=== PATIENT | female | born 1990 | race Caucasian/White ===

== ENCOUNTER 2017-02-08 10:43 | Emergency (ER) | payer OTHER ==
[~2017-02-08] VITALS: Ht 172.7 cm; Wt 68.0 kg
[2017-02-08] MEDS ORDERED: CHLORDIAZEPOXIDE HCL 25 MG CAPSULE ONE (10:55)
[2017-02-08] MEDS ORDERED: ONDANSETRON 4 MG TAB.RAPDIS ONE (10:56)
[2017-02-08] MEDS ORDERED: CHLORDIAZEPOXIDE HCL 25 MG CAPSULE PO ONE (11:00)
[2017-02-08] MEDS ORDERED: hydrOXYzine 10 MG TABLET PO ONE (11:00)
[2017-02-08] MEDS ORDERED: ONDANSETRON 4 MG TAB.RAPDIS SL ONE (11:00)
[2017-02-08 11:50] VITALS: BP 122/68
== END 2017-02-08 12:01 ==
LOC: ER 10:46
DX: F11.10 Opioid abuse, uncomplicated (principal)
CPT/HCPCS: A4606; Q0162; Q0177; Z7610

== ENCOUNTER 2017-05-26 22:58 | Emergency (ER) | payer SELFPAY ==
[~2017-05-26] VITALS: Ht 170.2 cm; Wt 65.8 kg
[2017-05-26 22:58] VITALS: BP 136/84
--- NOTE | 2017-05-26 23:49 | NUR ---
Patient left without being seen by ER Physician. PT LOLLY.
== END 2017-05-26 23:52 | disposition left against medical advice (07) ==
LOC: ER 22:59
DX: Z53.21 Procedure and treatment not carried out due to patient leaving prior to being seen by health care provider (principal)
CPT/HCPCS: A4606; A6402; Z7610